=== PATIENT | female | born 1965 | race African-American/Black ===

== ENCOUNTER 2019-02-12 21:22 | Emergency (ER) | payer SELFPAY ==
[~2019-02-12] VITALS: Ht 175.3 cm; Wt 136.1 kg
--- NOTE | 2019-02-12 22:15 | PHYS DOC ---
Past Medical History Past Medical History: No Pertinent History Past Surgical History: Tubal ligation Alcohol Use: Heavy Drug Use: None Adult General Chief Complaint Chief Complaint: NEURO SYMPTOMS/DEFICITS HPI HPI 53-year-old female presents to the emergency Department complaints of right jaw pain, right gum pain, concern for abscess. Right knee pain, difficulty walking over the last 3 days, right toe numbness. Patient has a conglomerate amount of complaints. Nothing makes her symptoms worse, nothing makes her symptoms better. She denies any chest pain, shortness breath, nausea, vomiting. She denies any fever. She states difficulty to eat secondary to the pain in her gums. Review of Systems Review of Systems Constitutional: Denies fever or chills [] HENT: Denies nasal congestion or sore throat [] Respiratory: Denies cough or shortness of breath [] Cardiovascular: No additional information not addressed in HPI [] GI: Denies abdominal pain, nausea, vomiting, bloody stools or diarrhea [] Musculoskeletal: right Knee pain Integument: Denies rash or skin lesions [] Neurologic: Denies headache, focal weakness, right great toe numbness [] All other systems were reviewed and found to be within normal limits, except as documented in this note. Allergies Allergies Allergies Coded Allergies Type Severity Reaction Last Updated Verified No Known Drug Allergies 02/12/19 No Physical Exam Physical Exam Constitutional: Well developed, well nourished, no acute distress, non-toxic appearance. [] HENT: Normocephalic, atraumatic, bilateral external ears normal, oropharynx moist, no oral exudates, nose normal. [] Eyes: PERRLA, EOMI, conjunctiva normal, no discharge. [] Neck: Normal range of motion, no tenderness, supple, no stridor. [] Cardiovascular:Heart rate regular rhythm, no murmur [] Lungs & Thorax: Bilateral breath sounds clear to auscultation [] Abdomen: Bowel sounds normal, soft, no tenderness, no masses, no pulsatile masses. [] Skin: Warm, dry, no erythema, no rash. [] Back: No tenderness, no CVA tenderness. [] Extremities: No tenderness, no cyanosis, no clubbing, ROM intact, no edema. [] Neurologic: Alert and oriented X 3, normal motor function, normal sensory function, no focal deficits noted. [] Psychologic: Affect normal, judgement normal, mood normal. [] Current Patient Data Vital Signs Vital Signs Date Time Temp Pulse Resp B/P (MAP) Pulse Ox O2 Delivery O2 Flow Rate FiO2 02/12/19 21:35 98.8 115 17 145/101 (116) 97 Room Air 98.8 Lab Values Laboratory Tests Test 02/12/19 22:43 White Blood Count 6.3 x10^3/uL (4.0-11.0) Red Blood Count 4.97 x10^6/uL (3.50-5.40) Hemoglobin 13.1 g/dL (12.0-15.5) Hematocrit 40.6 % (36.0-47.0) Mean Corpuscular Volume 82 fL (79-100) Mean Corpuscular Hemoglobin 26 pg (25-35) Mean Corpuscular Hemoglobin Concent 32 g/dL (31-37) Red Cell Distribution Width 21.2 % (11.5-14.5) H Platelet Count 331 x10^3/uL (140-400) Neutrophils (%) (Auto) 51 % (31-73) Lymphocytes (%) (Auto) 38 % (24-48) Monocytes (%) (Auto) 7 % (0-9) Eosinophils (%) (Auto) 3 % (0-3) Basophils (%) (Auto) 1 % (0-3) Neutrophils # (Auto) 3.2 x10^3/uL (1.8-7.7) Lymphocytes # (Auto) 2.4 x10^3/uL (1.0-4.8) Monocytes # (Auto) 0.4 x10^3/uL (0.0-1.1) Eosinophils # (Auto) 0.2 x10^3/uL (0.0-0.7) Basophils # (Auto) 0.1 x10^3/uL (0.0-0.2) Platelet Estimate Adequate (ADEQUATE) Hypochromasia Slight Anisocytosis Mod Sodium Level 142 mmol/L (136-145) Potassium Level 4.2 mmol/L (3.5-5.1) Chloride Level 108 mmol/L (98-107) H Carbon Dioxide Level 29 mmol/L (21-32) Anion Gap 5 (6-14) L Blood Urea Nitrogen 22 mg/dL (7-20) H Creatinine 0.9 mg/dL (0.6-1.0) Estimated GFR (Cockcroft-Gault) 79.0 BUN/Creatinine Ratio 24 (6-20) H Glucose Level 169 mg/dL (70-99) H Calcium Level 8.7 mg/dL (8.5-10.1) Total Bilirubin 0.2 mg/dL (0.2-1.0) Aspartate Amino Transferase (AST) 13 U/L (15-37) L Alanine Aminotransferase (ALT) 17 U/L (14-59) Alkaline Phosphatase 133 U/L (46-116) H Total Protein 7.0 g/dL (6.4-8.2) Albumin 3.1 g/dL (3.4-5.0) L Albumin/Globulin Ratio 0.8 (1.0-1.7) L Laboratory Tests 02/12/19 22:43 Laboratory Tests 02/12/19 22:43 EKG EKG [] Radiology/Procedures Radiology/Procedures Negative head CT Negative knee xray for acute fracture[] Course & Med Decision Making Course & Med Decision Making Pertinent Labs and Imaging studies reviewed. (See chart for details) []53-year-old female presents to the emergency Department complaints of right jaw pain, right gum pain, concern for abscess. Right knee pain, difficulty walking over the last 3 days, right toe numbness. Patient has a conglomerate amount of complaints. Nothing makes her symptoms worse, nothing makes her sym ptoms better. She denies any chest pain, shortness breath, nausea, vomiting. She denies any fever. She states difficulty to eat secondary to the pain in her gums. Labs and imaging reviewed CT without evidence of acute process Knee xray without evidence of acute fracture Recommend dc home and follow up with PCP Rupali Disclaimer Rupali Disclaimer This electronic medical record was generated, in whole or in part, using a voice recognition dictation system. Departure Departure Impression: Primary Impression: Right knee pain Additional Impressions: Numbness and tingling of foot Gingiva hypertrophia Disposition: 01 HOME, SELF-CARE Condition: STABLE Referrals: NO PCP (PCP) Patient Instructions: Knee Pain, [id number], Teeth and Gum Care, [id number] Additional Instructions: Recommend follow up with PCP 3 - 5 days Return to the ER with worsening symptoms, intractable pain, fever, altered mental status Tylenol/Motrin as needed for pain Take antibiotics as directed Scripts Doxycycline Hyclate (DOXYCYCLINE HYCLATE) 100 Mg Capsule 1 CAP PO BID, #14 CAP Prov: ELLA HOWARD MD 02/12/19 Problem Qualifiers Primary Impression: Right knee pain Chronicity: chronic Qualified Codes: M25.561 - Pain in right knee; G89.29 - Other chronic pain ELLA HOWARD MD Feb 12, 2019 22:15
--- NOTE | 2019-02-12 22:34 | RAD ---
CT Head W/O Contrast: History: 3 days right-sided weakness Comparison: none Axial images were obtained without contrast. There is a small hypoattenuating lesion in the periventricular white matter on the right which is likely chronic small vessel disease. There is no mass effect, extraaxial fluid collections or hydrocephalus. There is no gross bleed. There is no focal loss of hurtado-white matter distinction to suggest acute ischemia, i.e. stroke. Impression: No acute findings. RS Compliance Statement: One or more of the following individualized dose reduction techniques were utilized for this examination: 1. Automated exposure control 2. Adjustment of the mA and/or kV according to patient size 3. Use of iterative reconstruction technique Electronically signed by: Colin Wylie III, MD (02/12/2019 10:31 PM) [email or web address]
[2019-02-12 22:50] LABS: BASO # 0.1 x10^3/uL (0.0-0.2); BASO % 1 % (0-3); EOS # 0.2 x10^3/uL (0.0-0.7); EOS % 3 % (0-3); HEMATOCRIT 40.6 % (36.0-47.0); HEMOGLOBIN 13.1 g/dL (12.0-15.5); LYMPH # 2.4 x10^3/uL (1.0-4.8); LYMPH % 38 % (24-48); MEAN CORPUSCULAR HEMOGLOBIN 26 pg (25-35); MEAN CORPUSCULAR HGB CONC 32 g/dL (31-37); MEAN CORPUSCULAR VOLUME 82 fL (79-100); MONO # 0.4 x10^3/uL (0.0-1.1); MONO % 7 % (0-9); NEUT # 3.2 x10^3/uL (1.8-7.7); NEUT % 51 % (31-73); PLATELET COUNT 331 x10^3/uL (140-400); RED BLOOD COUNT 4.97 x10^6/uL (3.50-5.40); RED CELL DISTRIBUTION WIDTH 21.2 % (11.5-14.5); WHITE BLOOD COUNT 6.3 x10^3/uL (4.0-11.0)
[2019-02-12] MEDS ORDERED: DOXY100C2 PO (22:57)
[2019-02-12 22:58] LABS: CALCIUM 8.7 mg/dL (8.5-10.1); CREATININE 0.9 mg/dL (0.6-1.0); POTASSIUM 4.2 mmol/L (3.5-5.1)
[2019-02-12 23:03] LABS: ALBUMIN 3.1 g/dL (3.4-5.0); ALBUMIN/GLOBULIN RATIO 0.8 (1.0-1.7); TOTAL BILIRUBIN 0.2 mg/dL (0.2-1.0)
[2019-02-12 23:10] LABS: ANISOCYTOSIS MOD; HYPOCHROMIA SLIGHT; PLT ESTIMATE ADEQUATE (ADEQUATE)
--- NOTE | 2019-02-12 23:21 | RAD ---
Right knee AP lateral oblique There is marginal spurring of all 3 compartments. There is no joint effusion. There is no lytic destructive changes. IMPRESSION: Degenerative changes. No acute findings. Electronically signed by: Colin Wylie III, MD (02/12/2019 11:18 PM) [email or web address]
[2019-02-12 23:36] VITALS: BP 100/55
== END 2019-02-12 23:37 | disposition home or self-care (01) ==
LOC: ER 21:22
DX: M25.561 Pain in right knee (principal); K06.1 Gingival enlargement; R20.0 Anesthesia of skin; R20.2 Paresthesia of skin; G89.29 Other chronic pain; R26.2 Difficulty in walking, not elsewhere classified; F10.20 Alcohol dependence, uncomplicated; Y90.9 Presence of alcohol in blood, level not specified; Z98.51 Tubal ligation status
CPT/HCPCS: 36415; 70450; 73562; 80053; 85025; 99285-25

== ENCOUNTER → 2021-07-12 | Outpatient (CLI) | payer MEDICAID ==
[~2021-07-12] MED LIST: DOXY100C3 PO
--- NOTE | 2021-07-12 15:13 | RAD ---
EXAM: Lumbar spine, 5 views. HISTORY: Pain. Radiculopathy. COMPARISON: None. FINDINGS: 5 views of the lumbar spine are obtained. There is no significant listhesis. There is degen erative endplate remodeling with disc space narrowing, osteophytosis and facet arthropathy primarily at L4-L5, and to a lesser extent, L5-S1. IMPRESSION: Degenerative change primarily at L4-L5 and L5-S1. No acute osseous finding. Electronically signed by: Opal Grimes MD (07/12/2021 3:10 PM) [id number]
== END ==
LOC: RAD 14:10
PROVIDERS: ATTEND Family Medicine
DX: M47.817 Spondylosis without myelopathy or radiculopathy, lumbosacral region (principal); M48.07 Spinal stenosis, lumbosacral region; M25.78 Osteophyte, vertebrae; M48.8X7 Other specified spondylopathies, lumbosacral region
CPT/HCPCS: 72110

== ENCOUNTER → 2021-08-09 | Outpatient (CLI) | payer MEDICAID ==
[~2021-08-09] MED LIST changes: +ACET500T68 PO; +FLUO40CA2 PO; +LEVO50TA5 PO; +LISI5TAB15 PO; +MAG-115 PO; +METF500T16 PO
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
== END | disposition home or self-care (01) ==
LOC: PNCL 12:42
PROVIDERS: ATTEND Anesthesiology
DX: M54.50 Low back pain, unspecified (principal); E11.9 Type 2 diabetes mellitus without complications; M19.90 Unspecified osteoarthritis, unspecified site; F41.9 Anxiety disorder, unspecified; Z98.51 Tubal ligation status; Z98.890 Other specified postprocedural states; Z72.89 Other problems related to lifestyle; Z79.84 Long term (current) use of oral hypoglycemic drugs; Z79.899 Other long term (current) drug therapy
CPT/HCPCS: G0463

== ENCOUNTER → 2021-08-30 | Outpatient (CLI) | payer MEDICAID ==
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
== END | disposition home or self-care (01) ==
LOC: PNCL 14:05
PROVIDERS: ATTEND Anesthesiology
DX: M51.16 Intervertebral disc disorders with radiculopathy, lumbar region (principal); Z79.899 Other long term (current) drug therapy; Z72.89 Other problems related to lifestyle
CPT/HCPCS: 99212; G0463

== ENCOUNTER 2021-09-20 12:09 | Emergency (ER) | payer MEDICAID ==
[~2021-09-20] VITALS: Ht 175.3 cm; Wt 128.0 kg
[2021-09-20] MEDS ORDERED: IV NORMAL SALINE 1000ML BAG 1,000 ML IV ONE (13:15)
[2021-09-20 13:26] LABS: BASO % 0 % (0-3); EOS # 0.1 x10^3/uL (0.0-0.7); EOS % 2 % (0-3); HEMATOCRIT 43.8 % (36.0-47.0); HEMOGLOBIN 14.4 g/dL (12.0-15.5); LYMPH # 2.1 x10^3/uL (1.0-4.8); LYMPH % 34 % (24-48); MEAN CORPUSCULAR HEMOGLOBIN 29 pg (25-35); MEAN CORPUSCULAR HGB CONC 33 g/dL (31-37); MEAN CORPUSCULAR VOLUME 89 fL (79-100); MONO # 0.5 x10^3/uL (0.0-1.1); MONO % 7 % (0-9); NEUT # 3.5 x10^3/uL (1.8-7.7); NEUT % 57 % (31-73); PLATELET COUNT 289 x10^3/uL (140-400); RED CELL DISTRIBUTION WIDTH 14.7 % (11.5-14.5); WHITE BLOOD COUNT 6.2 x10^3/uL (4.0-11.0)
[2021-09-20 13:41] LABS: CALCIUM 9.4 mg/dL (8.5-10.1); CREATININE 1.1 mg/dL (0.6-1.0); GFR 61.9; POTASSIUM 4.2 mmol/L (3.5-5.1)
[2021-09-20 13:46] LABS: ALBUMIN 3.4 g/dL (3.4-5.0); ALBUMIN/GLOBULIN RATIO 0.8 (1.0-1.7); TOTAL BILIRUBIN 0.7 mg/dL (0.2-1.0); TOTAL PROTEIN 7.6 g/dL (6.4-8.2)
[2021-09-20 14:18] VITALS: BP 123/82
--- NOTE | 2021-09-20 14:48 | PHYS DOC ---
Past Medical History Past Medical History: Diabetes-Type II (ABBY MCCURDY APRN) Past Surgical History: Tubal ligation (ABBY MCCURDY APRN) Smoking Status: Never Smoker Alcohol Use: Occasionally Drug Use: None (ABBY MCCURDY APRN) General Adult EDM: Chief Complaint: BLOOD SUGAR PROBLEM HPI: HPI: Patient is a 56-year-old female who presents today with high blood sugar. Patient states that [facility] for a female exam, she states they checked her blood sugar and it was over 500, they sent her here to the emergency department for further evaluation and management of her blood sugar. Patient states that she normally takes metformin 500 mg twice daily for her diabetes but she has not been taking that for over 1 month. Patient denies chest pain, shortness of breath, fever chills, blurred vision double vision or nausea and vomiting diarrhea. (ABBY MCCURDY APRN) Review of Systems: Review of Systems: Constitutional: Denies fever or chills. [] Eyes: Denies change in visual acuity. [] HENT: Denies nasal congestion or sore throat. [] Respiratory: Denies cough or shortness of breath. [] Cardiovascular: Denies chest pain or edema. [] GI: Denies abdominal pain, nausea, vomiting, bloody stools or diarrhea. [] : Denies dysuria. [] Musculoskeletal: Denies back pain or joint pain. [] Integument: Denies rash. [] Neurologic: Denies headache, focal weakness or sensory changes. [] Endocrine: High blood sugar denies polyuria or polydipsia. [] Lymphatic: Denies swollen glands. [] Psychiatric: Denies depression or anxiety. [] (ABBY MCCURDY APRN) Heart Score: C/O Chest Pain: No Risk Factors: Risk Factors: DM, Current or recent (<one month) smoker, HTN, HLP, family history of CAD, obesity. Risk Scores: Score 0 - 3: 2.5% MACE over next 6 weeks - Discharge Home Score 4 - 6: 20.3% MACE over next 6 weeks - Admit for Clinical Observation Score 7 - 10: 72.7% MACE over next 6 weeks - Early Invasive Strategies (ABBY MCCURDY APRN) Current Medications: Current Medications Medications (Trade) Dose Ordered Sig/Melvina Start Time Stop Time Status Last Admin Dose Admin Sodium Chloride 1,000 ml @ 999 mls/hr 1X ONCE 09/20/21 13:15 09/20/21 14:15 DC 09/20/21 13:15 999 MLS/HR (ABBY MCCURDY APRN) Allergies: Allergies: Allergies Coded Allergies Type Severity Reaction Last Updated Verified No Known Drug Allergies 02/12/19 No (ABBY MCCURDY FOREPART LASTER) Physical Exam: PE: Constitutional: Well developed, well nourished, no acute distress, non-toxic appearance. [] HENT: Normocephalic, atraumatic, bilateral external ears normal, oropharynx moist, no oral exudates, nose normal. [] Eyes: PERRLA, EOMI, conjunctiva normal, no discharge. [] Neck: Normal range of motion, no tenderness, supple, no stridor. [] Cardiovascular:Heart rate regular rhythm, no murmur [] Lungs & Thorax: Bilateral breath sounds clear to auscultation [] Abdomen: Bowel sounds normal, soft, no tenderness, no masses, no pulsatile masses. [] Skin: Warm, dry, no erythema, no rash. [] Back: No tenderness, no CVA tenderness. [] Extremities: No tenderness, no cyanosis, no clubbing, ROM intact, no edema. [] Neurologic: Alert and oriented X 3, normal motor function, normal sensory function, no focal deficits noted. [] Psychologic: Affect normal, judgement normal, mood normal. [] (ABBY MCCURDY FOREPART LASTER) Current Patient Data: Labs: Laboratory Tests Test 09/20/21 12:30 09/20/21 13:15 Glucose (Fingerstick) 467 mg/dL (70-99) H White Blood Count 6.2 x10^3/uL (4.0-11.0) Red Blood Count 4.90 x10^6/uL (3.50-5.40) Hemoglobin 14.4 g/dL (12.0-15.5) Hematocrit 43.8 % (36.0-47.0) Mean Corpuscular Volume 89 fL (79-100) Mean Corpuscular Hemoglobin 29 pg (25-35) Mean Corpuscular Hemoglobin Concent 33 g/dL (31-37) Red Cell Distribution Width 14.7 % (11.5-14.5) H Platelet Count 289 x10^3/uL (140-400) Neutrophils (%) (Auto) 57 % (31-73) Lymphocytes (%) (Auto) 34 % (24-48) Monocytes (%) (Auto) 7 % (0-9) Eosinophils (%) (Auto) 2 % (0-3) Basophils (%) (Auto) 0 % (0-3) Neutrophils # (Auto) 3.5 x10^3/uL (1.8-7.7) Lymphocytes # (Auto) 2.1 x10^3/uL (1.0-4.8) Monocytes # (Auto) 0.5 x10^3/uL (0.0-1.1) Eosinophils # (Auto) 0.1 x10^3/uL (0.0-0.7) Basophils # (Auto) 0.0 x10^3/uL (0.0-0.2) Sodium Level 138 mmol/L (136-145) Potassium Level 4.2 mmol/L (3.5-5.1) Chloride Level 104 mmol/L (98-107) Carbon Dioxide Level 23 mmol/L (21-32) Anion Gap 11 (6-14) Blood Urea Nitrogen 14 mg/dL (7-20) Creatinine 1.1 mg/dL (0.6-1.0) H Estimated GFR (Cockcroft-Gault) 61.9 BUN/Creatinine Ratio 13 (6-20) Glucose Level 459 mg/dL (70-99) H Lactic Acid Level 2.1 mmol/L (0.4-2.0) H Calcium Level 9.4 mg/dL (8.5-10.1) Total Bilirubin 0.7 mg/dL (0.2-1.0) Aspartate Amino Transferase (AST) 10 U/L (15-37) L Alanine Aminotransferase (ALT) 23 U/L (14-59) Alkaline Phosphatase 195 U/L (46-116) H Total Protein 7.6 g/dL (6.4-8.2) Albumin 3.4 g/dL (3.4-5.0) Albumin/Globulin Ratio 0.8 (1.0-1.7) L Laboratory Tests 09/20/21 13:15 Laboratory Tests 09/20/21 13:15 Vital Signs: Vital Signs Date Time Temp Pulse Resp B/P (MAP) Pulse Ox O2 Delivery O2 Flow Rate FiO2 09/20/21 14:18 84 18 123/82 (96) 99 Room Air 09/20/21 13:18 96 20 134/102 (113) 98 Room Air 09/20/21 12:25 98.3 106 18 130/89 (103) 94 Room Air 98.3 Vital Signs Date Time Temp Pulse Resp B/P (MAP) Pulse Ox O2 Delivery O2 Flow Rate FiO2 09/20/21 12:25 98.3 106 18 130/89 (103) 94 Room Air 98.3 (ABBY MCCURDY APRN) EKG: EKG: [] (ABBY MCCURDY APRN) Radiology/Procedures: Radiology/Procedures: [] (ABBY MCCURDY APRN) Course & Med Decision Making: Course & Med Decision Making Pertinent Labs and Imaging studies reviewed. (See chart for details) [id number] patient was found to be not in her room, she was found by nursing staff outside waiting for her ride with her IV still in place, nursing staff did remove her IV and are checking her blood sugar prior to discharge. Patient is leaving AGAINST MEDICAL ADVICE because she has not finished her evaluation here in the emergency department and she does not wish to stay. We did inform patient's of the risk and benefits of staying which at risk include permanent disability, , no worsening symptoms. The benefits of staying is getting treated for her high glucose as well as restarting her medications for better management of her diabetes. Patient continues to want to leave and does not wish to stay at this time. Patient's gait was stable. (ABBY MCCURDY APRN) Dragon Disclaimer: Dragon Disclaimer: This electronic medical record was generated, in whole or in part, using a voice recognition dictation system. (ABBY MCCURDY FOREPART LASTER) Departure Departure Impression: Primary Impression: Hyperglycemia due to diabetes mellitus Disposition: LEFT AGAINST MEDICAL ADVICE Condition: STABLE Referrals: Shaan BURCH MD (PCP) Attending Signature I have participated in the care of this patient and I have reviewed and agree with all pertinent clinical information above including history, exam, and recommendations. (JANAE FONTENOT DO) ABBY MCCURDY APRN September 20, 2021 14:48 JANAE FONTENOT DO September 20, 2021 15:28
[2021-09-20 14:56] LABS: BACTERIA,URINE 0 /HPF (0-FEW); RBC,URINE 0 /HPF (0-2); WBC,URINE OCC /HPF (0-4)
== END 2021-09-20 14:48 | disposition left against medical advice (07) ==
LOC: ER 12:09
DX: E11.65 Type 2 diabetes mellitus with hyperglycemia (principal); Z98.51 Tubal ligation status
CPT/HCPCS: 36415; 80053; 81001; 82962; 83605; 85025; 96360; 99283; J7030